=== PATIENT | male | born 1955 | race Caucasian/White ===

== ENCOUNTER 2018-08-31 05:38 | Day surgery (SDC) | payer MEDICARE ==
[~2018-08-31] VITALS: Ht 188 cm; Wt 100.9 kg
[2018-08-31] VITALS (19 sets, daily range): BP systolic 98–150; BP diastolic 52–94; Ht 188 cm; Wt 100.9 kg
[~2018-08-31 05:38] MED LIST: CELEBREX200 MG PO; CELEXA40 MG PO; DOLOPHINE HCL10 MG PO; HYDROCODON-ACE1 EA10 PO; LISINOPRIL-HCT1 EAC7 PO; NEURONTIN800 MG PO; OMEPRAZOLE20 M1 PO; ZANAFLEX4 MG PO
[2018-08-31 06:11] LABS: HEMATOCRIT 56.4 % (42.0-54.0); HEMOGLOBIN 19.6 g/dL (13.5-17.5); MCH 29.6 pg (26.0-34.0); MCHC 34.8 g/dL (31.0-37.0); MCV 85.1 fL (80.0-100.0); MEAN PLATELET VOLUME 9.5 fL (7.4-10.4); RDW 16.4 % (11.5-14.5); WBC 11.2 10x3/uL (4.8-10.8)
[2018-08-31 06:16] LABS: RBC 6.63 10x6/uL (4.20-6.10)
[2018-08-31 06:27] LABS: CALC OSMOLALITY 278 mosm/kg (275-300); CALCIUM 8.7 mg/dL (8.5-10.1); CARBON DIOXIDE 31.7 mmol/L (21.0-32.0); CHLORIDE - SERUM 101 mmol/L (98-107); CREATININE - SERUM 0.8 mg/dL (0.6-1.3); GLUCOSE 126 mg/dL (74-106); POTASSIUM - SERUM 4.1 mmol/L (3.5-5.1); SODIUM 138 mmol/L (136-145); UREA NITROGEN 14 mg/dL (7-18); eGFR NON AFRICAN AMERICAN > 90 mL/min (90-120)
[2018-08-31] MEDS ORDERED: TESTOSTERONE CYP 200 (06:32)
[2018-08-31] MEDS ORDERED: ATIVAN0.5 MG PO (06:33)
[2018-08-31] MEDS ORDERED: ANORO ELLIPTA1 EACH INH (06:34)
[2018-08-31] MEDS ORDERED: LIPITOR10 MG (06:34)
[2018-08-31] MEDS ORDERED: PHENERGAN25 M1 PO (06:34)
--- NOTE | 2018-08-31 06:53 | NUR ---
anesthesia notified of critical lab values.
--- NOTE | 2018-08-31 11:44 | NUR ---
PT STATES HE HAS NO FAMILY HERE TO GIVE UPDATE ON. WILL CALL REPORT TO ICU STAFF FOR ROOM 2305. PT A&O SITTING UP IN BED AND VERBALIZED PAIN RELIEF AFTER MEDICATION WAS GIVEN. WILL CTM, THEN TRANSFER TO HIS NEW ROOM.
--- NOTE | 2018-08-31 12:00 | NUR ---
PT RECEIVED ON BED BY BRAYAN GIPSON. VSS. O2 SAT 97% ON 5L NC. NECK INCISION DRESSING CDI. MEDS GIVEN PER APR. CALL LIGHT IN REACH, WILL CONTINUE TO MONITOR.
--- NOTE | 2018-08-31 13:00 | NUR ---
PT RESTING COMFORTABLY IN BED, VSS. WILL CONTINUE TO MONITOR.
--- NOTE | 2018-08-31 14:30 | NUR ---
PT BELONGINGS BROUGHT FROM PACU BY BRAYAN GIPSON. PT REQUESTING TO KEEP PERSONAL ITEMS INCLUDING BAG WITH WALLET AT THE BEDSIDE. HOME MEDS WERE DOCUMENTED, COUNTED, AND SENT TO PHARMACY PER PATIENT REQUEST. MEDS COUNTED AND VERIFIED BY BRAYAN SHERWOOD AND BRAYAN BISHOP.
--- NOTE | 2018-08-31 17:12 | NUR ---
REPORT RECEIVED FROM TIMBO SCHMIDT FROM ICU. PT HOOKED TO ICU MONITORS. VSS. PT AMBULATED TO THE BATHROOM WITH A STEADY GAIT. PT DENIES PAIN AT THIS TIME. ATTEPMTED TO TAKE OFF 2L VIA NC TO RA BUT PT DESATED TO 88%. IS GIVEN TO THE PT AND INSTRUCTED TO USE 10X'S/H. PT PULLS ABOUT 3000 ON HIS IS. CALL LIGHT IN REACH. WILL CONT POC.
--- NOTE | 2018-08-31 19:00 | NUR ---
Received patient resting in bed with eyes open watching TV, assessment completed per flowsheet. Patient AO x4, answers appropriately/follows instructions. Anterior neck incision with steri-strips intact, no difficulty swallowing/breathing observed. S1/S2 noted NSR on telemetry, rythmic and regular. Breathing is even/unlabored on 2L via NC with O2 sat 94%, lung sounds clear throughout. Abdomen is round/soft with bowel sounds active x4, non-tender. Patient ambulates self to bathroom without assist, gait is upright/steady with no difficulties reported. All pulses palpable with cap refill < 3 sec, full ROM all extremities with skin warm/dry. C/O neck aching 5/10, PRN medication provided. Denies further needs at this time, see flowsheet for details. All VSS and will continue to monitor.
--- NOTE | 2018-08-31 21:00 | NUR ---
Patient resting in bed with eyes closed, no s/s of distress at this time. Patient family at bedside, discussed discharge plans with all questions answered to satisfaction. Denies needs at this time, all VSS and will continue to monitor.
--- NOTE | 2018-08-31 22:55 | NUR ---
Reassessment completed per flowsheet, no changes noted from previous assessment. S1/S2 noted NSR on telemetry, rythmic and regular. Breathing is even/unlabored on 2L via NC with O2 sat 92%, lung sounds clear throughout. Anterior neck incision dressing CDI, no swallowing/breathing difficulties noted. All pulses palpable with cap refill < 3 sec, skin warm/dry. C/O neck aching 2/10, denies needs at this time. See flowsheet for details, all VSS and will continue to monitor.
[2018-09-01] VITALS (12 sets, daily range): BP systolic 99–159; BP diastolic 50–91
--- NOTE | 2018-09-01 01:00 | NUR ---
Patient OOB to bathroom without assist, sitting up in chair at bedside at request. Denies needs at this time, all VSS and will continue to monitor.
--- NOTE | 2018-09-01 03:00 | NUR ---
Reassessment completed per flowsheet, no changes noted from previous assessment. S1/S2 NSR on telemetry, rythmic and regular. Breathing is even/unlabored on room air with O2 sat 91%, lung sounds clear throughout. Anterior neck incision dressing CDI, no difficulty breathing/swallowing noted. See flowsheet for details, all VSS and will continue to monitor.
--- NOTE | 2018-09-01 05:00 | NUR ---
Patient resting in bed with eyes open watching TV, no s/s of distress at this time. Denies needs at this time, all VSS and will continue to monitor.
--- NOTE | 2018-09-01 07:00 | NUR ---
REPORT RECEVIED FROM THE OFF GOING RN. SEE ASSESSMENT IN THE PTS FLOW SHEET. PT UP SELF AMBULATING IN HIS ROOM. VSS AT THIS TIME ON RA. NECK INCISION C/D/I AND WELL APPROXIMATED. TRACHEA MIDLINE. PT COMPLAINING OF BEING ANXIOUS. REORIENTED THE PT WITH SUCCESS. BREAKFAST TRAY PROVIDED FOR THE PT. DENIES PAIN AT THIS TIME. CALL LIGHT IN REACH. WILL CONT POC.
--- NOTE | 2018-09-01 07:40 | NUR ---
SPOKE WITH DR ALVARADO ABOUT THE PT BEING AGGITATED AND RESTLESS. STAT ABG'S AND RESTART HOME MEDS.
--- NOTE | 2018-09-01 07:55 | NUR ---
CLARIFIED THE ATIVAN ORDER WITH DR ALVARADO. ATIVAN 0.5 TID PRN
--- NOTE | 2018-09-01 08:25 | NUR ---
PT LYING IN BED RESTING WITH HIS EYES CLOSED WITH EVEN AND ULABORED RESPIRATIONS. NO S/SX OF DISTRESS/DISCOMFORT. PT CALM AT THIS TIME. WILL CONT POC.
--- NOTE | 2018-09-01 11:50 | NUR ---
DR ALVARADO AT THE PTS BEDSIDE. OK TO DC HOME.
[2018-09-01] MEDS ORDERED: HYDROCODON-ACE1 EA10 PO (12:02)
[2018-09-01] MEDS ORDERED: ROBAXIN500 MG PO (12:03)
--- NOTE | 2018-09-01 14:13 | NUR ---
PIV DC'D WITH THE CATHETER TIP INTACT. PT STATES THAT HIS RIDE IS ALMOST HERE.
--- NOTE | 2018-09-01 14:55 | NUR ---
ALL BELONINGS ACCOUNTED FOR. RX FROM THE PHARMACY GIVEN BACK TO THE PT AND THE PT AGREES WITH QUANITY RECIEVED. DC INSTRCTIONS WENT OVER WITH THE PT. PT HAS NO QUESTIOS AT THIS TIME. PT LEFT IN A STABLE CONDITION AND DENIES PAIN. NO S/SX OF DISTRESS/DISOCMFORT NOTED. PT LEFT WITH EX .
--- NOTE | 2018-09-04 10:23 | OP ---
PATIENT NAME: DARREN FLETCHER MEDICAL RECORD: [id number] :55 LOCATION:[facility] ADMISSION DATE: SURGEON: CRISTY MUELLER MD DATE OF OPERATION: 08/31/2018 PREOPERATIVE DIAGNOSES: Osteophyte formation and disc herniation at C5-C6 and C6-C7 with cervical myelopathy and bilateral C6 and C7 radiculopathies. SURGEON: Cristy Mueller MD PROCEDURES: Anterior cervical discectomy and fusion at C5-C6 and C6-C7, removal of osteophytes, Zavation anterior cervical plate and screws, separate PEEK interbody cages with stem cells at C5-6 and C6-7. DESCRIPTION OF TECHNIQUE: After induction of general endotracheal anesthesia, the patient was positioned supine on the operating table. Neck was prepped and draped in usual sterile fashion. Fluoroscopic x-ray and freer localized the C5-C6 interspace. After infiltration of 1:100,000 epinephrine and 1% lidocaine, a transverse skin incision was carried out from the midline to the sternocleidomastoid muscle. The platysma was divided with Bovie cautery. Then using blunt and sharp dissection with Metzenbaum scissors, I proceeded in avascular plane medial to the carotid sheath. The C5-C6 and C6-C7 interspaces were identified with fluoroscopic x-ray and a spinal needle. The longus colli muscles were elevated from bodies of C5, C6, and C7. A self-retaining retractor was placed deep to the longus colli muscles. [place] distracting pins were placed by the C5, C6, and C7. The levels were confirmed with fluoroscopic x-ray. An 11 blade was used to incise the disc space at each interspace. The curettes and pituitary rongeurs were used to remove the disc material and prepare the bony endplates at each level, 5-6 and 6-7. Osteophytes were drilled away posteriorly with a Midas-Babatunde drill under microscopic illumination. Foraminotomies were carried out on both sides with #2 Cloward rongeurs. Next, a 6-mm PEEK interbody cage was placed in the disc space of C5-6 and then one of 5 mm at C6-7. Prior to this, these were filled with bone stem cells. Next, Zavation anterior cervical plate and screws, which was separate from the PEEK interbody cages, was placed spanning the C5-C6 and C6-C7 interspaces. Screws were placed through the holes in the plate. Locking cams were tightened down over the screw heads. Good position of the hardware was confirmed with fluoroscopic x-ray. Locking cams were tightened down over the screw heads. Meticulous hemostasis was maintained throughout the wound and the wound was irrigated with copious amounts of Ancef irrigant solution. The platysma and subdermal layer closed with interrupted 3-0 Vicryl suture. The skin was reapproximated with Steri-Strips and benzoin. A sterile dressing was applied to the wound. The patient was awakened in good condition and taken to recovery. All counts were reported as correct. Estimated blood loss was minimal. TRANSINT:[id number] Voice Confirmation ID: [id number] DOCUMENT ID: [id number] OPERATIVE REPORT [id number] DARREN FLETCHER, CRISTY NUÑEZ at 1023 CC: [id number] DICTATION DATE: 08/31/18 1159 SHIPPER/RECEIVER: 08/31/18 1215 [facility] 09/01/18 [id number] [place] [address]
== END 2018-09-01 14:59 | disposition home or self-care (01) ==
LOC: D.OPS 05:38 → D.PAN 07:30 → D.ICU 11:05 → D.CVICU 16:30 → D.OPS 09-01 14:59
PROVIDERS: Anesthesiology; ATTEND Neurological Surgery
DX: M50.022 Cervical disc disorder at C5-C6 level with myelopathy (principal); M54.12 Radiculopathy, cervical region; M25.78 Osteophyte, vertebrae; Z01.812 Encounter for preprocedural laboratory examination